=== PATIENT | female | born 1985 | race Caucasian/White ===

== ENCOUNTER 2018-10-30 09:47 | Day surgery (SDC) | payer OTHER ==
[2018-10-30] MEDS ORDERED: PROPOFOL 40 ML (10:37)
== END 2018-10-30 15:58 | disposition home or self-care (01) ==
LOC: GIL 09:47
DX: K29.30 Chronic superficial gastritis without bleeding (principal)
CPT/HCPCS: 43239; 84703; 88305; 88312